=== PATIENT | female | born 2000 | race Caucasian/White ===

== ENCOUNTER 2025-02-15 08:14 | Emergency (ER) | payer OTHER, SELFPAY ==
[2025-02-15 08:17] VITALS: BP 121/84
--- NOTE | 2025-02-15 08:33 | ED.GENMED ---
History of Present Illness
General
Chief Complaint: Abdominal Pain
Source: patient
Exam Limitations: none
Time Seen by Provider: 02/15/25 08:22
Nursing documentation reviewed up to this point in time: agreed with
History of Present Illness
History of Present Illness:
Patient is a 24-year-old female presenting to the emergency department with mom with sudden onset right lower abdominal pain. Patient states symptoms started this morning after waking inscribe a constant sharp pain in her right lower abdomen. She
denies any radiation into her back. She reports associated nausea however has had no episodes of vomiting. No fever, anorexia. No abnormal vaginal bleeding or discharge.
Patient states she felt at her baseline prior to going to sleep last night.
Of note�patient states she did recently have a urinalysis performed due to urinary frequency which showed no evidence of infection however did note RBCs which was thought to be related to her menstrual cycle.
LMP 1 week ago.
Review of Systems
Review of Systems
Allergies reviewed?: Yes
All Other Systems: ROS reviewed and negative except as documented in HPI and ROS
Phy Exam
Physical Exam
Physical Exam:
Vitals: Patient's vital signs are stable.
General: Patient is very uncomfortable appearing due to pain.
Skin: Warm and dry, no rashes or lesions
Head: Normocephalic, atraumatic
Eyes: Sclera nonicteric. EOMs intact. No nystagmus.
Throat: Protecting airway
Neck: Normal ROM, no cervical spine tenderness, no meningismus
Cardiac: Regular rate and rhythm, no murmurs.
Pulm: Normal respiratory effort, no wheezes, rales, rhonchi heard on exam
Abdomen: Abdomen soft without any areas of reproducible tenderness. No focal tenderness McBurney's point. No CVA tenderness
Extremities: No evidence of cyanosis or edema. 2+ palpable DP pulses bilaterally
Neuro: AAOx3. Grossly intact
Psychiatric: Normal affect.
Course
Orders/Labs/Results
Orders:
Orders
02/15/25 08:27
Test Result ONCE
02/15/25 08:31
0.9% Sodium Chloride 1000 ml [Nss] 1,000 ml IV BOLUS
Ketorolac [Toradol] 15 mg IV NOW STA
Ondansetron Injectable [Zofran] 4 mg IV NOW STA
Pelvis (Non Obstetric) US [US Pelvis Only (non-obstetric)] Urgent
Comment:
Reason For Exam: RLQ pain, sudden onset.
Renal Only US [US Renal Only W/O Bladder] Urgent
Comment:
Reason For Exam: RLQ pain, sudden onset
02/15/25 08:51
Complete Blood Count/With Diff Urgent
Comprehensive Metabolic Panel Urgent
HCG, Serum Qualitative Screen Urgent
02/15/25 09:38
HYDROmorphone [Dilaudid] 0.5 mg IV NOW STA
02/15/25 13:21
Urinalysis Reflex To Culture Urgent
Date Specimen was Collected: 02/15/25
Time Specimen was Collected: 13:20
Urine Microscopic Reflex Cult Urgent
02/15/25 13:30
CT Abd/pelvis W Iv Cont Urgent
Comment:
Reason For Exam: RLQ pain
02/15/25 16:57
Tamsulosin [Flomax] 0.4 mg PO NOW STA
Abnormal Lab Results
02/15/25 02/15/25
08:51 13:21
MPV 10.8 H fL
(7.4-10.4)
Chloride 108 H mmol/L
(98-107)
Carbon Dioxide 20 L mmol/L
(22-30)
Glucose 124 H mg/dl
(70-99)
Ur Occult Blood Reflex 4+ A
(Negative)
Urine RBC 3-6 A /HPF
(0-2)
Urine Bacteria (Reflex) Few A
(Negative)
02/15/25 08:51
02/15/25 08:51
Vital Signs
Temp: 97.8 F
Initial and Last Documented VS:
Initial Vital Signs
Pulse Resp BP Pulse Ox
72 20 121/84 100
02/15/25 08:17 02/15/25 08:17 02/15/25 08:17 02/15/25 08:17
Last Documented Vital Signs
Temp Pulse Resp BP Pulse Ox
97.8 F 69 14 115/66 100
02/15/25 08:45 02/15/25 17:16 02/15/25 17:16 02/15/25 17:27 02/15/25 08:37
MDM/Problems Addressed
Differential Diagnosis Includes:
No limited to: Renal colic, ovarian cyst, ovarian torsion, appendicitis, pyelonephritis, etc.
MDM/Problems Addressed:
24 y.o F w/ acute onset RLQ pain associated with nausea. No fevers, vomiting, anorexia, abnormal vaginal bleeding/discharge. Patient afebrile with stable vital signs on arrival. Physical exam as above. Differential includes renal colic,
pyelonephritis, ovarian etiology including cyst, torsion. Less likely appendicitis given no reproducible tenderness, fever, or anorexia. ED plan: Labs, UA. Will start with renal and pelvis ultrasound to rule out ovarian etiology as well as
evaluate for any hydronephrosis to suggest possible obstructing kidney stone. Will treat pain and give IV fluids. Will reassess after above.
Update:Labs without acute abnormalities. No leukocytosis. UA with few RBCs however no evidence of infection. Pelvis and kidney US without acute findings other than small amount of pelvic free fluid. Patient much more comfortable following pain
medicine however given degree of discomfort on arrival to ED - utilized shared decision making and will obtain CT to r/o acute intra- abdominal process.
Update: CT scan with suspected right distal ureteral stone approximately 4mm. Patient has remained comfortable and pain is well controlled. No evidence of assoicated infection. Stable for discharge home with supportive care at home and urology f/u.
Return precautions discussed.
Chronic conditions affecting care:
N/A
Acute Exacerbation and/or Progression of Chronic Illness:
N/A
*Radiology
Radiology exam reviewed: radiology read reviewed
*Pulse Oximetry
SaO2: 100
Oxygen Mode of Delivery: Room air
Patient hypoxic: no
*EKG
Interpreted by ED Provider?: NA
*Accounting File Clerk Interpretation
Rate: Accounting File Clerk- N/A
*Critical Care Note
Total Time (30-74mins, 75-104mins- exclusive of procedures): Not Applicable
Patient Management
Discussion with other providers: Radiologist
ED Attending Note
-
Portions of this chart may have been created with voice recognition software.� Occasional wrong word or��sound alike� substitutions may have occurred due to the inherent limitations of voice recognition software.
Discharge Plan
Departure
Patient Disposition: Home (Routine Discharge)
Date of Disposition: 02/15/25
Time of Disposition: 17:00
Patient with high blood pressure during this ER visit?: No
Condition: Good
Discharge Problem:
Abdominal pain, Renal colic on right side
Instructions: Kidney Stones (DC), Abdominal Pain
Prescriptions:
New
tamsulosin [Flomax] 0.4 mg capsule
0.4 mg PO DAILY Qty: 14 0RF
ondansetron 4 mg tablet,disintegrating
4 mg PO Q8H PRN (Reason: nausea and vomiting) Qty: 7 0RF
oxycodone 5 mg tablet
5 mg PO Q8H PRN (Reason: Pain) Qty: 5 0RF
Referrals:
Victoriano Galloway MD [Active, Urology] - Follow up in 5-7 days
Delmi Thomas PA [Family Provider, Family Practice]
Stand Alone Forms: Return to Work
Activity Restrictions/Additional Instructions:
RETURN TO THE EMERGENCY DEPARTMENT WITH ANY INTRACTABLE PAIN, PERSISTENT/WORSENING ABDOMINAL PAIN, INTRACTABLE NAUSEA/VOMITING, FEVERS, DIFFICULTY URINATING OR SYMPTOMS OF UTI, WORSENING OF CURRENT SYMPTOMS, OR ANY OTHER CONCERNS
- As discussed�your lab work showed no acute abnormalities. Your urinalysis did reveal few red blood cells however no evidence of infection.
- Your imaging studies suggest your pain is likely secondary to a kidney stone on the right side.
- You should take 600 mg of ibuprofen every 6-8 hours as needed for pain. A prescription for oxycodone has been sent to your pharmacy for severe pain. This may cause drowsiness and do not take prior to driving. In addition�you should take Flomax
daily until the stone passes. Please strain your urine. It is important to stay well-hydrated
- Follow-up with urology for further evaluation/management to ensure that your symptoms improve. The contact information has been provided for you above
Monitor your symptoms closely and return to the emergency department with any acute worsening/new symptoms or any other concerns
Interventions
Interventions:
*Risk Screen - Suicide Last Done: 02/15/25 08:18
*General Assessment Last Done: 02/15/25 08:38
*Neglect/Abuse Screening Last Done: 02/15/25 08:18
*ED- Fall Risk Assessment Last Done: 02/15/25 08:38
*ED COVID-19 Vaccine History Last Done: 02/15/25 08:38
*Nursing Disposition Last Done: 02/15/25 17:28
VX-Zwwmlt-Dhkfrbxcal Assessment Last Done: 02/15/25 08:38
Discharge Date and Time
Discharge Date/Time: 02/15/25 17:30
Print Language: ROMANIAN
[2025-02-15 08:38] VITALS: BMI 20.4
[2025-02-15] MEDS: NSS 1000 IV (08:45)
[2025-02-15] MEDS: ZOFRAN 4 MG IV (08:46)
[2025-02-15] MEDS: TORADOL 15 MG IV (08:46)
[2025-02-15 08:49] VITALS: BP 127/76
[2025-02-15 09:00] VITALS: BP 128/91
[2025-02-15 09:00] LABS: Hematocrit 39.8 % (37.0-47.0); Hemoglobin 13.7 g/dL (12.0-16.0); Mean Corp Hgb Conc. 34.4 g/dL (33.0-37.0); Mean Corpuscular Volume 82.7 fL (81.0-99.0); Nucleated Red Blood Cells % 0 %; Platelet Count 305 10^3/uL (130-400); Red Cell Dist. Width 12.6 % (11.5-14.5)
[2025-02-15 09:09] LABS: HCG, Serum Qualitative Screen Negative
[2025-02-15 09:19] LABS: ALT (SGPT) 17 U/L (0-35); AST (SGOT) 23 U/L (14-36); Albumin 4.6 g/dl (3.5-5.0); Alkaline Phosphatase 42 U/L (38-126); Blood Urea Nitrogen 11 mg/dl (7-17); Calcium 9.7 mg/dl (8.4-10.2); Carbon Dioxide 20 mmol/L (22-30); Chloride 108 mmol/L (98-107); Estimated Creatinine Clearance 90 ml/min; Glucose 124 mg/dl (70-99); Potassium 3.8 mmol/L (3.5-5.1); Sodium 137 mmol/L (135-145); Total Protein 7.1 g/dl (6.3-8.2); eGFR > 60.00
[2025-02-15] MEDS: DILAUDID 0.5 MG IV (09:47)
[2025-02-15 13:41] LABS: Urine Character Clear (Clear)
[2025-02-15 15:17] VITALS: BP 113/72
[2025-02-15 16:00] VITALS: BP 103/57
[2025-02-15 17:27] VITALS: BP 115/66
[2025-02-15] MEDS: FLOMAX 0.4 MG PO (17:28)
== END 2025-02-15 17:30 | disposition home or self-care (01) ==
LOC: EMR 08:14
PROVIDERS: EMERGENCY PHYSICIAN Emergency Medicine; FAMILY PHYSICIAN Physician Assistant
DX: N23 Unspecified renal colic (principal)
CPT/HCPCS: 99284; 96374; 96375 ×2; 96361; 74177; 76775; 76856; 80053; 81003; 81015; 84703; 85025; Q9967